=== PATIENT | male | born 1985 | race American Indian/Alaskan Native ===

== ENCOUNTER → 2020-07-10 17:54 | Emergency (ER) | payer SELFPAY | END | disposition left against medical advice (07) | LOC: ED 17:54 | DX: R07.89 Other chest pain (principal); Z53.21 Procedure and treatment not carried out due to patient leaving prior to being seen by health care provider ==

== ENCOUNTER 2020-07-12 11:50 | Outpatient (CLI) | payer SELFPAY ==
--- NOTE | 2020-07-12 14:15 | XRay Report ---
CHEST PA AND LATERAL VIEWS INDICATION: PRE EMPLOYMENT EXAM. COMPARISON: None. FINDINGS: Support devices: None. Heart: Within normal limits. Lungs/Pleura: No acute pulmonary or pleural findings. IMPRESSION: 1. No acute findings. Signer Name: Pipe [place] MD Signed: 07/12/2020 2:10 PM Workstation Name: [id number]
== END 2020-07-12 11:51 | disposition home or self-care (01) ==
LOC: XRAY 11:50
DX: R76.11 Nonspecific reaction to tuberculin skin test without active tuberculosis (principal); Z02.1 Encounter for pre-employment examination
CPT/HCPCS: 71046